=== PATIENT | female | born 1995 | race Caucasian/White ===

== ENCOUNTER → 2017-07-03 | Outpatient (CLI) | payer BC | END | disposition home or self-care (01) | LOC: RADECHMAIN 12:33 | PROVIDERS: ATTEND Internal Medicine | DX: R00.2 Palpitations (principal) | CPT/HCPCS: 93225; 93226 ==

== ENCOUNTER 2022-03-14 09:55 | Outpatient (CLI) | payer BC ==
[2022-03-14] MEDS ORDERED: ACETAMINOPHEN IV (For NPO) 1,000 MG in EMPTY BAG 1 BAG IVPB STA (10:38)
[2022-03-14] MEDS ORDERED: ONDANSETRON 4 MG/2 ML VIAL IVP STA (10:38)
[2022-03-14 10:40] LABS: Basophils % (A) 0 %; Eosinophils # (A) 0.1 k/uL (0-0.7); Eosinophils % (A) 1 %; HGB 13.7 gm/dL (11.4-16.0); Lymphocytes # (A) 1.1 k/uL (1.0-4.8); Lymphocytes % (A) 10 %; MCH 33.1 pg (25.0-35.0); MCHC 34.1 g/dL (31.0-37.0); MCV 97.1 fL (80.0-100.0); Mean Platelet Volume 8.9; Monocytes # (A) 0.5 k/uL (0-1.0); Monocytes % (A) 4 %; Neutrophils # (A) 9.7 k/uL (1.3-7.7); Neutrophils % (A) 84 %; Platelet Count 162 k/uL (150-450); RBC 4.12 m/uL (3.80-5.40); RDW 13.3 % (11.5-15.5); WBC 11.6 k/uL (3.8-10.6)
[2022-03-14] MEDS: LACTATED RINGERS 1,000 ML IV SCH ×3 (10:47→14:38)
[2022-03-14 10:53] LABS: Uric Acid 3.9 mg/dL (3.7-7.4)
[2022-03-14 11:24] LABS: Appearance,Urine Clear (Clear); Bacteria,Urine Occasional /hpf; Bilirubin,Urine Negative (Negative); Blood,Urine Moderate (Negative); Color,Urine Yellow; Glucose,Urine (UA) Negative (Negative); Ketones,Urine Negative (Negative); Leukocyte Esterase,Urine Moderate (Negative); Mucus,Urine Occasional /hpf; Nitrite,Urine Negative (Negative); Protein,Urine Negative (Negative); RBC,Urine 94 /hpf (0-5); Specific Gravity,Urine 1.011 (1.001-1.035); Squamous Epithelial Cell,Urine 1 /hpf (0-4); Urobilinogen,Urine <2.0 mg/dL (<2.0); WBC,Urine 3 /hpf (0-5)
--- NOTE | 2022-03-14 12:38 | US ---
EXAMINATION TYPE: US kidneys/renal and bladder DATE OF EXAM: 03/14/2022 COMPARISON: None CLINICAL HISTORY: 26-year-old female rule out kidney stones. Rule out stones. Hx kidney stones and li thotripsy. Patient is 34 weeks . TECHNIQUE: Multiple sonographic images of the kidneys and bladder are obtained. FINDINGS: EXAM MEASUREMENTS: Right Kidney: 10.7 x 6.6 x 5.1 cm Left Kidney: 10.7 x 5.7 x 6.3 cm Right Kidney: There is mild hydronephrosis. 8 mm echogenic focus at the upper pole and 7 mm at the lo wer pole. Left Kidney: There is mild hydronephrosis. There is a 5 mm upper pole echogenic focus. Bladder: Distended with some internal echoes. Bilateral Jets seen: Yes IMPRESSION: 1. Mild bilateral hydronephrosis. 2. Bilateral renal calculi measuring up to 8 mm. 3. Floating echoes within the distended gallbladder. Correlate with urinalysis to exclude hematuria o r infected urine.
[2022-03-14 14:50] VITALS: BP 139/84; PULSE 100; RESP 16; TEMP 98.8
== END 2022-03-14 13:00 | disposition home or self-care (01) ==
LOC: FBPOP 09:55
PROVIDERS: ATTEND Obstetrics & Gynecology
DX: O13.9 Gestational [pregnancy-induced] hypertension without significant proteinuria, unspecified trimester (principal)
CPT/HCPCS: 59025; 96361; 96365; 96367; 96375; 36415; 83615; 84450; 84460; 84550; 85025; 81001; 87086; 76770; J0690; J2405; J0131

== ENCOUNTER 2022-04-17 05:59 | Inpatient (IN) | payer BC ==
[2022-04-17] MEDS ORDERED: TERBUTALINE 1 MG/ML VIAL SQ PRN (06:19)
[2022-04-17] MEDS ORDERED: OXYTOCIN 10 UNIT/ML 1 ML VIAL IM PRN (06:19)
[2022-04-17] MEDS ORDERED: CARBOPROST TROMETHAMINE 250 MCG/ML 1 ML AMP IM PRN (06:19)
[2022-04-17] MEDS ORDERED: LIDOCAINE 0.5% (PF) 5 MG/ML (50 ML SDV) SQ PRN (06:19)
[2022-04-17] MEDS ORDERED: METHYLERGONOVINE 0.2 MG/ML 1 ML AMP IM PRN (06:19)
[2022-04-17] MEDS ORDERED: OXYTOCIN 30 UNITS/500 ML NS 30 UNIT in SALINE 1 500ML.BAG IV SCH (06:30)
[2022-04-17] MEDS: LACTATED RINGERS 1,000 ML IV SCH ×3 (06:54→14:28)
[2022-04-17 07:09] LABS: Basophils # (A) 0.1 k/uL (0-0.2); Basophils % (A) 1 %; Eosinophils # (A) 0.1 k/uL (0-0.7); Eosinophils % (A) 2 %; HCT 42.1 % (34.0-46.0); HGB 14.3 gm/dL (11.4-16.0); Lymphocytes # (A) 1.6 k/uL (1.0-4.8); Lymphocytes % (A) 18 %; MCH 32.9 pg (25.0-35.0); MCV 96.7 fL (80.0-100.0); Mean Platelet Volume 8.8; Monocytes # (A) 0.5 k/uL (0-1.0); Monocytes % (A) 5 %; Neutrophils # (A) 6.5 k/uL (1.3-7.7); Neutrophils % (A) 73 %; Platelet Count 169 k/uL (150-450); RBC 4.36 m/uL (3.80-5.40); RDW 12.9 % (11.5-15.5); WBC 8.9 k/uL (3.8-10.6)
--- NOTE | 2022-04-17 07:35 | P.HPOB ---
History of Present Illness H&P Date: 04/17/22 Chief Complaint: Here for induction of labor for gestational hypertension This is a 26-year-old female 1 para 0 EDC 04/24/2022 at 39 weeks gestation who presents this morning for induction with gestational hypertension. Blood pressure was actually very good this morning on admission, 131/86. She denies headache, visual changes, right upper quadrant pain. She is having mild irregular spontaneous contractions but denies fluid leakage or vaginal bleeding. Past medical history is significant for headaches, absence seizures in childhood, kidney stones. Past surgical history significant for lithotripsy, wisdom teeth extracted, adenoidectomy, tonsillectomy. Current medications vitamins daily, baby aspirin daily. ALLERGIES penicillin to which reports a rash. Family history significant for pancreatic cancer, lung cancer, esophageal cancer. Social history patient is , she works at [employer], she denies alcohol tobacco or drug use. history is significant for blood type O+, rubella status immune. VDRL testing, urine culture, gonorrhea and chlamydia cultures, Pap smear, HIV testing, hepatitis B surface antigen, rupee strep cultures negative. One-hour Glucola 132. On exam patient is 5 foot 1 inch, 175 pounds, blood pressure 130/86. Vital signs are stable and she is afebrile. General physical exam is within normal limits. Cervix is 3 cm dilated, soft, 60% effaced, vertex. Artificial amniorrhexis reveals clear fluid. heart rate is consistent with reactive NST. Impression: 39 week intrauterine , gestational hypertension, here for induction of labor. All signs reassuring. Plan: I have discussed with her analgesic options. Oxytocin per hospital protocol. We will check PIH labs this morning. Close maternal and surveillance. Anticipate normal spontaneous vaginal delivery. Review of Systems Constitutional: Reports as per HPI Past Medical History Past Medical History: Renal Disease (History of kidney stones in the past requiring surgical intervention by urology) Additional Past Medical History / Comment(s): epilepsy, kidney stones, MRSA History of Any Multi-Drug Resistant Organisms: MRSA Date of last positivie culture/infection: 01/16/2015 MDRO Source:: legs Past Surgical History: Tonsillectomy Additional Past Surgical History / Comment(s): lithotripsy/uretal stent Past Anesthesia/Blood Transfusion Reactions: No Reported Reaction Past Psychological History: No Psychological Hx Reported Smoking Status: Never smoker Past Alcohol Use History: Occasional Past Drug Use History: None Reported - Past Family History Mother Family Medical History: Hypertension Medications and Allergies Home Medications Medication Instructions Recorded Confirmed Type Aspirin 81 mg PO DAILY 04/17/22 04/17/22 History Vit No.179/Iron/Folic 1 each PO DAILY 04/17/22 04/17/22 History [ Tablet] Allergies Allergy/AdvReac Type Severity Reaction Status Date / Time Penicillins Allergy Rash/Hives Verified 04/17/22 06:17 Sulfa (Sulfonamide Allergy Rash/Hives Verified 04/17/22 06:17 Antibiotics) Exam Vital Signs Temp Pulse Resp BP Pulse Ox 04/17/22 06:23 98.1 F 103 H 18 131/86 97 Intake and Output 04/16/22 04/17/22 04/17/22 22:59 06:59 14:59 Other: Weight 79.379 kg See dictation under HPI please Results Result Diagrams: 04/17/22 06:40 Assessment and Plan Assessment: 39 week intrauterine , gestational hypertension, here for elective induction of labor. All signs reassuring. Plan: Oxytocin per hospital protocol. Analgesic options reviewed. Close maternal and surveillance. We will check PIH labs this morning. Anticipate normal spontaneous vaginal delivery. Time with Patient: Less than 30
[2022-04-17 07:54] LABS: ALT 11 U/L (4-34); AST 25 U/L (14-36); African American GFR (CKD) >90 (>60 ml/min/1.73 sqM); Blood Urea Nitrogen 8 mg/dL (7-17); LDH 591 U/L (313-618); Non-African American GFR(CKD) >90 (>60 ml/min/1.73 sqM)
[2022-04-17 07:55] LABS: INR 0.8 (<1.2); Partial Thromboplastin Time 24.3 sec (22.0-30.0); Prothrombin Time 9.5 sec (9.0-12.0)
[2022-04-17] MEDS ORDERED: BUPIVACAINE (PF) 0.25% 30 ML VIAL ONE (11:25)
[2022-04-17] MEDS ORDERED: fentaNYL (PF) 50 MCG/ML 5 ML AMP ONE (11:25)
[2022-04-17] MEDS ORDERED: SODIUM CHLORIDE 0.9% 100 ML BAG ONE (11:25)
[2022-04-17] MEDS ORDERED: LANOLIN CREAM 5 GM TUBE TOPICAL PRN (18:13)
[2022-04-17] MEDS ORDERED: diphenhydrAMINE 25 MG CAP PO PRN (18:13)
[2022-04-17] MEDS ORDERED: ZOLPIDEM 5 MG TAB PO PRN (18:13)
[2022-04-17] MEDS ORDERED: BENZOCAINE/MENTHOL SPRAY 1 GM/SPRAY AEROSOL TOPICAL PRN (18:13)
[2022-04-17] MEDS ORDERED: HYDROCORTISONE 2.5% RECTAL CREAM 30 GM TUBE RECTAL PRN (18:13)
[2022-04-17] MEDS ORDERED: diphenhydrAMINE 50 MG/ML 1 ML VIAL IVP PRN ×2 (18:13)
[2022-04-17] MEDS ORDERED: diphenhydrAMINE 50 MG CAP PO PRN (18:13)
[2022-04-17] MEDS ORDERED: SIMETHICONE 80 MG CHEWABLE PO PRN (18:13)
--- NOTE | 2022-04-17 18:13 | P.PROBDLV ---
Vaginal Delivery Note - . Vaginal Delivery Note: This is a 26-year-old female 1 para 0 EDC 04/24/2022 at 39 weeks gestation. Patient presented for induction with gestational hypertension, blood pressure on admission 131/86. Blood type O positive, rubella status immune, group B strep cultures negative. Please see my dictated history and physical for details. Artificial amniorrhexis revealed clear fluid. Oxytocin was started and titrated per hospital protocol. Epidural was placed per her request. Patient progressed through the first stage of labor and became completely dilated. Perineal body was prepped and draped in usual sterile fashion. With excellent maternal expulsive efforts tampons head delivered occiput anterior and she restituted accordingly. There was no nuchal cord noted. The right or anterior shoulder was delivered easily from underneath the pubic symphysis at which time the oropharynx, nasopharynx, and external nares were bulb suctioned. Patient was officially delivered of a liveborn female at 1742 hrs. Umbilical cord was doubly clamped and ligated, she was handed to waiting nurses for evaluation where scores of 8 and 9 at one and 5 minutes respectively were given. The placenta delivered spontaneously, it was inspected and noted to be intact with trivascular cord at 1745 hrs. Careful inspection now of the cervix, vagina, perineum, periurethral, and perirectal areas revealed a small first-degree midline laceration easily repaired with a single [id number] of 3-0 Rapide. Uterus is firm and in the midline, symmetric and 18 week size upon completion of delivery. Total estimated blood loss 250 mL's. Patient and her family are allowed to begin the bonding experience in the LDR. Blood pressure immediately after delivery 138/83.
[2022-04-17] MEDS ORDERED: ACETAMINOPHEN TAB 325 MG TAB PO PRN (20:02)
[2022-04-17] MEDS: SENNOSIDES-DOCUSATE SODIUM 1 EACH TAB PO SCH (23:20)
[2022-04-17] MEDS: IBUPROFEN 600 MG TAB PO SCH (23:21)
[2022-04-18] MEDS: IBUPROFEN 600 MG TAB PO SCH ×5 (01:26→21:53)
[2022-04-18 03:31] LABS: Basophils % (A) 0 %; Eosinophils % (A) 0 %; HCT 39.4 % (34.0-46.0); HGB 13.3 gm/dL (11.4-16.0); Lymphocytes # (A) 1.6 k/uL (1.0-4.8); Lymphocytes % (A) 10 %; MCH 33.1 pg (25.0-35.0); MCHC 33.9 g/dL (31.0-37.0); MCV 97.6 fL (80.0-100.0); Mean Platelet Volume 9.7; Monocytes # (A) 0.8 k/uL (0-1.0); Monocytes % (A) 5 %; Neutrophils # (A) 13.9 k/uL (1.3-7.7); Neutrophils % (A) 84 %; Platelet Count 195 k/uL (150-450); RBC 4.04 m/uL (3.80-5.40); RDW 13.2 % (11.5-15.5); WBC 16.6 k/uL (3.8-10.6)
[2022-04-18] MEDS: SENNOSIDES-DOCUSATE SODIUM 1 EACH TAB PO SCH ×2 (07:50→20:17)
--- NOTE | 2022-04-18 08:40 | P.DS ---
Providers Date of admission: 04/17/22 05:59 Expected date of discharge: 04/18/22 Attending physician: Muriel Andrew Primary care physician: Stated None Hospital Course: This is a 26-year-old white female 1 para 0 EDC 04/24/2022 at 39 weeks gestation who presented for induction with gestational hypertension. Blood pressure 131/86 on admission. Please see dictated history and physical for details. Artificial amniorrhexis revealed clear fluid. Oxytocin was started and titrated. Epidural was placed per her request. She went on to deliver vaginally a liveborn female with scores of 8 and 9 at one and 5 minutes respectively. weighed 7 lbs. 12 oz. or 3-40 g. A small first- degree laceration was noted and repaired easily. Estimated blood loss 250 mL's. Please see dictated delivery note for details. This 20 the patient is doing well. She is voiding, and bleeding, passing flatus without difficulty. Vital signs are stable, blood pressure 120s over 70s. Fundus is firm and in the midline, symmetric and 18 week size. Extremities are negative for edema. [place] infant is doing well. Patient is judged to be in very good condition for discharge home. She'll follow-up with me in the office in 6 weeks. I have reminded her no intercourse, tampons or douching. She will use [id number] Advil or Aleve, or Motrin as needed for pain. She will call with any fevers shakes or chills, foul smelling or copious lochia, with the passage of large blood clots, with any pain not alleviated by [id number] products, or indeed with any concerns. infant will follow-up with music theory teacher as per recommendations. Assessment: Doing well first day Patient Condition at Discharge: Good Plan - Discharge Summary Discharge Rx Participant: No New Discharge Prescriptions: No Action Vit No.179/Iron/Folic [ Tablet] 1 each PO DAILY Aspirin 81 mg PO DAILY Discharge Medication List Aspirin 81 mg PO DAILY 04/17/22 [History] Vit No.179/Iron/Folic [ Tablet] 1 each PO DAILY 04/17/22 [History] Follow up Appointment(s)/Referral(s): Muriel Andrew MD [STAFF PHYSICIAN] - 6 Weeks Discharge Disposition: HOME SELF-CARE
[2022-04-18] MEDS: LACTATED RINGERS 1,000 ML IV SCH (09:11)
[2022-04-19 07:44] VITALS: BP 128/86; PULSE 76; RESP 18; TEMP 98.7
[2022-04-19] MEDS: SENNOSIDES-DOCUSATE SODIUM 1 EACH TAB PO SCH (07:44)
[2022-04-19] MEDS: IBUPROFEN 600 MG TAB PO SCH ×2 (10:37→15:36)
== END 2022-04-19 15:41 | disposition home or self-care (01) | DRG 807 ==
LOC: 4FBP 05:59
PROVIDERS: ADMIT Obstetrics & Gynecology; ATTEND Obstetrics & Gynecology
PROC: 0HQ9XZZ Repair Perineum Skin, External Approach (ICD-10-PCS; principal; 2022-04-17)
PROC: 10E0XZZ Delivery of Products of Conception, External Approach (ICD-10-PCS; principal; 2022-04-17)
PROC: 10907ZC Drainage of Amniotic Fluid, Therapeutic from Products of Conception, Via Natural or Artificial Opening (ICD-10-PCS; 2022-04-17)
PROC: 3E033VJ Introduction of Other Hormone into Peripheral Vein, Percutaneous Approach (ICD-10-PCS; 2022-04-17)
DX: O13.4 Gestational [pregnancy-induced] hypertension without significant proteinuria, complicating childbirth (principal); Z37.0 Single live birth; O70.0 First degree perineal laceration during delivery; Z28.310 Unvaccinated for COVID-19; Z79.82 Long term (current) use of aspirin; Z79.899 Other long term (current) drug therapy; Z3A.39 39 weeks gestation of pregnancy; Z86.69 Personal history of other diseases of the nervous system and sense organs; Z88.0 Allergy status to penicillin; Z82.49 Family history of ischemic heart disease and other diseases of the circulatory system
CPT/HCPCS: 82565; 83615; 84450; 84460; 84520; 84550; 85025; 85384; 85610; 85730; 86850; 86900; 86901; 88307

== ENCOUNTER → 2022-06-07 | Outpatient (CLI) | payer BC ==
--- NOTE | 2022-06-07 09:20 | XR ---
EXAMINATION TYPE: XR KUB DATE OF EXAM: 06/07/2022 Comparison: None Clinical History: 26-year-old female N20.0 CALCULUS OF KIDNEY Findings: Scattered mild to moderate stool. Possible faint right-sided renal calculi measuring up to 4 mm. Limi gerri due to overlying bowel content. No dilated small bowel. Visualized lung bases are clear. Impression: A couple possible faint right renal calculi measuring up to 4 mm. Limited by overlying bowel content.
== END | disposition home or self-care (01) ==
LOC: RADXRMAIN 09:00
PROVIDERS: ATTEND Urology
DX: N20.0 Calculus of kidney (principal)
CPT/HCPCS: 74018

== ENCOUNTER → 2022-06-07 | Outpatient (CLI) | payer BC ==
--- NOTE | 2022-06-07 09:03 | USB ---
Reason for Exam: Clinical finding. Patient History: Currently . Technique: Method: Whole Breast Handheld. Findings: The whole breast of the left breast, the axilla of the left breast and the retroareolar of the left breast were scanned. Ultrasound imaging of the left whole breast, axillary tail and retroareolar region as well as the area of palpable abnormality was performed.Ultrasound imaging of the left whole breast, axillary tail and retroareolar region as well as the area of palpable abnormality was performed. No evidence of organizing fluid collection or mass. Overall Assessment: Negative, BI-RAD 1 Management: Screening Mammogram of both breasts in 1 year. A clinical breast exam by your physician is recommended on an annual basis and results should be correlated with mammographic findings. This exam should not preclude additional follow-up of suspicious palpable abnormalities. ??Results were given to the patient verbally at the time of exam. Electronically signed and approved by: Edson Mitchell,
== END | disposition home or self-care (01) ==
LOC: RADUSWWP 08:12
PROVIDERS: ATTEND Obstetrics & Gynecology
DX: N63.0 Unspecified lump in unspecified breast (principal)

== ENCOUNTER → 2023-02-19 | Outpatient (CLI) | payer BC ==
--- NOTE | 2023-02-19 18:01 | XR ---
EXAMINATION TYPE: XR abdomen 1V DATE OF EXAM: 02/19/2023 5:50 PM INDICATION: Patient age:Female; 27 years old; Reason for study: N20.0; COMPARISON: None. TECHNIQUE: One radiographic view of the abdomen was obtained. FINDINGS: The bowel gas pattern is nonspecific without dilated loops of small or large bowel. There i s no evidence for organomegaly or pneumoperitoneum. The osseous structures are intact. No abnormal calcifications are present. Fecal material and gas are demonstrated throughout the colon and rectum. IMPRESSION: Nonspecific bowel gas pattern without radiographic evidence for acute process.
== END | disposition home or self-care (01) ==
LOC: RADXRMAIN 17:38
PROVIDERS: ATTEND Urology
DX: N20.0 Calculus of kidney (principal)
CPT/HCPCS: 74018

== ENCOUNTER 2023-11-03 16:36 | Emergency (ER) | payer BC ==
[2023-11-03 17:21] LABS: Basophils % (A) 0 %; Eosinophils # (A) 0.2 k/uL (0-0.7); Eosinophils % (A) 2 %; HCT 40.3 % (34.0-46.0); HGB 14.1 gm/dL (11.4-16.0); Lymphocytes # (A) 1.5 k/uL (1.0-4.8); Lymphocytes % (A) 14 %; MCH 33.2 pg (25.0-35.0); MCHC 35.1 g/dL (31.0-37.0); MCV 94.8 fL (80.0-100.0); Mean Platelet Volume 8.6; Monocytes # (A) 0.3 k/uL (0-1.0); Monocytes % (A) 3 %; Neutrophils # (A) 8.3 k/uL (1.3-7.7); Neutrophils % (A) 80 %; Platelet Count 173 k/uL (150-450); RBC 4.25 m/uL (3.80-5.40); RDW 12.7 % (11.5-15.5); WBC 10.5 k/uL (3.8-10.6)
[2023-11-03 17:23] VITALS: TEMP 98.5
[2023-11-03 17:31] LABS: ALT 13 U/L (4-34); AST 23 U/L (14-36); African American GFR (CKD) >90 (>60 ml/min/1.73 sqM); Albumin 3.8 g/dL (3.5-5.0); Alkaline Phosphatase 125 U/L (38-126); Anion Gap 9 mmol/L; Blood Urea Nitrogen 12 mg/dL (7-17); Carbon Dioxide 18 mmol/L (22-30); Chloride 110 mmol/L (98-107); Glucose 121 mg/dL (74-99); Lipase 185 U/L (23-300); Magnesium 1.4 mg/dL (1.6-2.3); Non-African American GFR(CKD) >90 (>60 ml/min/1.73 sqM); Potassium 3.5 mmol/L (3.5-5.1); Sodium 137 mmol/L (137-145); Total Bilirubin 0.4 mg/dL (0.2-1.3); Total Protein 6.4 g/dL (6.3-8.2)
[2023-11-03 17:41] LABS: INR 0.8 (<1.2); Partial Thromboplastin Time 23.2 sec (22.0-30.0); Prothrombin Time 9.5 sec (10.0-12.5)
[2023-11-03 18:46] LABS: Appearance,Urine Cloudy (Clear); Bacteria,Urine Few /hpf; Bilirubin,Urine Negative (Negative); Blood,Urine Negative (Negative); Color,Urine Colorless; Glucose,Urine (UA) Negative (Negative); Ketones,Urine Negative (Negative); Leukocyte Esterase,Urine Large (Negative); Mucus,Urine Rare /hpf; Nitrite,Urine Negative (Negative); PH, Urine 6.5 (5.0-8.0); Protein,Urine Trace (Negative); RBC,Urine 8 /hpf (0-5); Specific Gravity,Urine 1.015 (1.001-1.035); Squamous Epithelial Cell,Urine 18 /hpf (0-4); Urobilinogen,Urine <2.0 mg/dL (<2.0); WBC,Urine 28 /hpf (0-5)
--- NOTE | 2023-11-03 18:52 | ED ---
Chest Pain HPI - General Chief Complaint: Chest Pain Stated Complaint: Chest Pains/33wks preg Time Seen by Provider: 11/03/23 16:52 Source: patient Mode of arrival: ambulatory Limitations: no limitations - History of Present Illness Initial Comments: 28-year-old female presents emergency department reporting chest pain. States that she has had chest pain over the course of the past week. The last she had it was yesterday. She denies having any pain today. No history of cardiac disease. Denies that she feels associated shortness of breath. Denies history of DVT or PE. No calf pain or swelling. She does admit to having palpitations which she feels is no worse than what should be expected at 33 weeks . She is G2, P1. Follows with Dr. Vargas. She denies any issues with hypertension or hyperglycemia in this . Does admit to some hypertension with her first . She called the office today in regards to her symptoms and was told to go to the emergency department. She denies fevers, chills or cough. No abdominal pain. Denies any vaginal bleeding or discharge. Does admit to movement. No headaches or visual changes. No other alleviating, precipitating or modifying factors - Related Data Home Medications Medication Instructions Recorded Confirmed Aspirin 81 mg PO DAILY 04/17/22 04/17/22 Vit No.179/Iron/Folic 1 each PO DAILY 04/17/22 04/17/22 [ Tablet] Allergies Allergy/AdvReac Type Severity Reaction Status Date / Time Penicillins Allergy Rash/Hives Verified 11/03/23 16:48 Sulfa (Sulfonamide Allergy Rash/Hives Verified 11/03/23 16:48 Antibiotics) Review of Systems ROS Statement: Those systems with pertinent positive or pertinent negative responses have been documented in the HPI. ROS Other: All systems not noted in ROS Statement are negative. Past Medical History Past Medical History: Renal Disease Additional Past Medical History / Comment(s): epilepsy, kidney stones, MRSA History of Any Multi-Drug Resistant Organisms: MRSA Date of last positivie culture/infection: 01/16/2015 MDRO Source:: legs Past Surgical History: Tonsillectomy Additional Past Surgical History / Comment(s): lithotripsy/uretal stent Past Anesthesia/Blood Transfusion Reactions: No Reported Reaction Past Psychological History: No Psychological Hx Reported Smoking Status: Never smoker Past Alcohol Use History: Occasional Past Drug Use History: None Reported - Past Family History Mother Family Medical History: Hypertension General Exam Limitations: no limitations General appearance: alert, in no apparent distress Head exam: Present: atraumatic, normocephalic, normal inspection Eye exam: Present: normal appearance, PERRL, EOMI. Absent: scleral icterus, conjunctival injection, periorbital swelling ENT exam: Present: normal exam, mucous membranes moist Neck exam: Present: normal inspection. Absent: tenderness, meningismus, lymphadenopathy Respiratory exam: Present: normal lung sounds bilaterally. Absent: respiratory distress, wheezes, rales, rhonchi, stridor Cardiovascular Exam: Present: normal rhythm, tachycardia, normal heart sounds. Absent: systolic murmur, diastolic murmur, rubs, gallop, clicks GI/Abdominal exam: Present: soft, normal bowel sounds, other (gravid). Absent: distended, tenderness, guarding, rebound, rigid Extremities exam: Present: normal inspection, full ROM, normal capillary refill. Absent: tenderness, pedal edema, joint swelling, calf tenderness Back exam: Present: normal inspection Neurological exam: Present: alert, oriented X3, CN II-XII intact Psychiatric exam: Present: normal affect, normal mood Skin exam: Present: warm, dry, intact, normal color. Absent: rash Course Vital Signs 11/03/23 11/03/23 11/03/23 16:42 17:58 18:54 Temperature 98.5 F Pulse Rate 124 H 114 H 102 H Respiratory 20 18 18 Rate Blood Pressure 146/92 147/91 127/87 O2 Sat by Pulse 98 97 97 Oximetry 11/03/23 19:50 Temperature Pulse Rate Respiratory 16 Rate Blood Pressure O2 Sat by Pulse Oximetry Chest Pain MDM - MDM Was pt. sent in by a medical professional or institution (, PA, RADIOLOGY TRANSCRIPTIONIST, urgent care, hospital, or residential...) When possible be specific @ -No Did you speak to anyone other than the patient for history (EMS, parent, family, police, friend...)? What history was obtained from this source @ -No Did you review nursing and triage notes (agree or disagree)? Why? @ -I reviewed and agree with nursing and triage notes Were old charts reviewed (outside hosp., previous admission, EMS record, old EKG, old radiological studies, urgent care reports/EKG's, residential records)? Report findings @ -No old charts were reviewed Differential Diagnosis (chest pain, altered mental status, abdominal pain women, abdominal pain men, vaginal bleeding, weakness, fever, dyspnea, syncope, headache, dizziness, GI bleed, back pain, seizure, CVA, palpatations, mental health, musculoskeletal)? @ -Differential Palpitations Ventricular arrhythmias, atrial arrhythmias, myocardial infarction, anemia, thyrotoxicosis, electrolyte imbalance, hypokalemia, pulmonary embolism, pulmonary disease, drugs, alcohol, anxiety, stress.... This is not meant to be an all-inclusive list. EKG interpreted by me (3pts min.). @ -Yes and demonstrates sinus tachycardia with a rate of 105. DC interval 127. QRS 86. QTc of 369. No acute ST segment elevations or depressions X-rays interpreted by me (1pt min.). @ -None done CT interpreted by me (1pt min.). @ -None done U/S interpreted by me (1pt. min.). @ -Bedside ultrasound performed which demonstrates positive movement and heart tones What testing was considered but not performed or refused? (CT, X-rays, U/S, labs)? Why? @ -None What meds were considered but not given or refused? Why? @ -Blood pressure medications are considered however patient does not elevate higher than acceptable range Did you discuss the management of the patient with other professionals (p richmondfessionalmattie i.e. , PA, RADIOLOGY TRANSCRIPTIONIST, lab, RT, psych nurse, social sciences department chair, trial lawyer, teacher, radiation safety officer, rn case management)? Give summary @ -Spoke with Dr. Patel who would like the patient transferred upstairs to OB Was smoking cessation discussed for >3mins.? @ -No Was critical care preformed (if so, how long)? @ -No Were there social determinants of health that impacted care today? How? (Homelessness, low income, unemployed, alcoholism, drug addiction, transportation, low edu. Level, literacy, decrease access to med. care, alf, rehab)? @ -No Was there de-escalation of care discussed even if they declined (Discuss DNR or withdrawal of care, Hospice)? DNR status @ -No What co-morbidities impacted this encounter? (DM, HTN, Smoking, COPD, CAD, Cancer, CVA, ARF, Chemo, Hep., AIDS, mental health diagnosis, sleep apnea, morbid obesity)? @ -None Was patient admitted / discharged? Hospital course, mention meds given and route, prescriptions, significant lab abnormalities, going to OR and other pertinent info. @ -Upon arrival patient was placed into room 19. Thorough history and physical exam was performed. IV was established. Laboratory studies are conducted. Bedside ultrasound was performed which demonstrates positive heart tones and movement. Results of laboratory studies are discussed with the patient and Dr. Patel. I am concerned about the patient's elevated blood pressure. Spoke with Dr. Patel who would like the patient sent upstairs for further evaluation. Patient was agreeable to this plan and was discharged from the ER and taken to labor and delivery Undiagnosed new problem with uncertain prognosis? @ -Yes Drug Therapy requiring intensive monitoring for toxicity (Heparin, Nitro, Insulin, Cardizem)? @ -No Were any procedures done? @ -No Diagnosis/symptom? @ -Acute palpitations, acute tachycardia, evaluation for preeclampsia Acute, or Chronic, or Acute on Chronic? @ -Acute Uncomplicated (without systemic symptoms) or Complicated (systemic symptoms)? @ -Complicated Side effects of treatment? @ -No Exacerbation, Progression, or Severe Exacerbation? @ -No Poses a threat to life or bodily function? How? (Chest pain, [place], [place], pneumonia, PE, COPD, DKA, ARF, appy, cholecystitis, CVA, Diverticulitis, Homicidal, Suicidal, threat to staff... and all critical care pts) @ -No Disposition Clinical Impression: Hypertension, Chest pain, Tachycardia Disposition: HOME SELF-CARE Condition: Stable Instructions (If sedation given, give patient instructions): Chest Pain (ED) Additional Instructions: Dr. Patel would like you to go upstairs for the remainder of your evaluation Is patient prescribed a controlled substance at d/c from ED?: No Referrals: None,Stated [Primary Care Provider] - 1-2 days Time of Disposition: 19:46
[2023-11-03 18:58] VITALS: BP 127/87; PULSE 102
[2023-11-03 20:00] VITALS: RESP 16
== END 2023-11-03 19:51 | disposition home or self-care (01) ==
LOC: EC 16:36
DX: O16.3 Unspecified maternal hypertension, third trimester (principal); O99.413 Diseases of the circulatory system complicating pregnancy, third trimester; R07.89 Other chest pain; R00.0 Tachycardia, unspecified; Z88.2 Allergy status to sulfonamides; Z88.0 Allergy status to penicillin; Z3A.33 33 weeks gestation of pregnancy
CPT/HCPCS: 36415; 80053; 81001; 83690; 83735; 84484; 84550; 85025; 85379; 85610; 85730; 93005; 99285

== ENCOUNTER → 2023-11-03 | Outpatient (CLI) | payer BC ==
[2023-11-03 21:20] LABS: Creatinine,Urine Random 69.9 mg/dL; Protein/Creatinine Ratio,Urine 0.458
[2023-11-03 22:44] VITALS: BP 130/79; PULSE 95; RESP 16; TEMP 98.2
--- NOTE | 2023-11-05 07:06 | P.MSEPDOC ---
Presenting Problems - Arrival Data Date of Arrival on Unit: 11/03/23 Time of Arrival on Unit: 20:20 Mode of Transport: Ambulatory - Complaint OB-Reason for Admission/Chief Complaint: NST, Other Medical History - Information : 2 Para: 1 Term: 1 : 0 Abortions: Spontaneous or Elective: 0 Number of Living Children: 1 - Gestational Age Gestational Age by CARLOS (wks/days): 33 Weeks and 2 Days Review of Systems - Review of Systems Constitutional: No problems, Recent weight loss Breast: No problems ENT: No problems Cardiovascular: No problems Respiratory: No problems Gastrointestinal: No problems Genitourinary: No problems Musculoskeletal: No problems Neurological: No problems Skin: No problems Vital Signs - Temperature Temperature: 98.2 F Temperature Source: Oral - Pulse Supine Pulse Rate: 95 Pulse Assessment Method: Automatic Cuff - Respirations Respiratory Rate: 16 Oxygen Delivery Method: Room Air - Blood Pressure Right Arm Blood Pressure: 130/79 Blood Pressure Mean: 96 Blood Pressure Source: Automatic Cuff Medical Screen Scoring - Assessment - Baby A Baseline FHR: 125 Heart Rate - NICHD Category: Category I (Normal) NST: Reactive Physician Notification - Physician Notified Physician Notified Date: 11/03/23 Physician Notified Time: 20:50 Physician: DR MENDENHALL New Order Received: Yes - Notification Comment Comment: PT TO DISCHARGE HOME Maternal Triage Index - Non-Urgent/Priority 4 Non-Urgent Priority 4: Yes Criteria Met for Priority 4: PT STABLE COMING FROM ER FOR NST Disposition - Disposition OB Disposition: Discharge to home, Written follow up instructions reviewed Discharge Date: 11/03/23 Discharge Time: 21:15 I agree with the RN Medical Screening Exam: Yes Case reviewed; plan agreed upon as documented in EMR&OBIX.: Yes Diagnosis: RELATED CONDITIONS, UNSPECIFIED, THIRD TRIMESTER
== END | disposition home or self-care (01) ==
LOC: FBPOP 19:59
PROVIDERS: ATTEND Obstetrics & Gynecology
DX: O26.893 Other specified pregnancy related conditions, third trimester (principal); Z3A.33 33 weeks gestation of pregnancy; Z88.0 Allergy status to penicillin; Z88.2 Allergy status to sulfonamides
CPT/HCPCS: 59025; 82570; 84156; 99215

== ENCOUNTER → 2023-11-13 | Outpatient (CLI) | payer BC ==
--- NOTE | 2023-11-13 21:06 | US ---
EXAMINATION TYPE: US OB >= 14 wk fetus DATE OF EXAM: 11/13/2023 COMPARISON: None CLINICAL INDICATION: Female, 28 years old with history of O36.63X0 MATERNAL CARE FOR EXCESS JESUS MANUEL WTH, TH; Growth TECHNIQUE: Transabdominal (TA) GESTATIONAL AGE / DATING Physician Established: (35 weeks/0 days) EDC: 12/18/2023 Dates by LMP: (35 weeks/0 days) EDC: 12/18/2023 Dates by First Scan: No previous this is first scan at this facility Dates by Current Scan: (34 weeks/4 days) EDC: 12/21/2023 Beta HCG (if available): Not available at this time SURVEY IUP: Single PLACENTA: Anterior/ Fundal PREVIA: No Previa MAGALI: 13.4 cm Normal CERVICAL LENGTH (transabdominal: norm > 3.0cm): 4.2 cm BIOMETRY PRESENTATION: Vertex LIE: Longitudinal BPD: 8.7 cm 35 weeks / 3 days HC: 31.35 cm 35 weeks / 1 days AC: 31.14 cm 35 weeks / 1 days FL: 6.26 cm 32 weeks / 3 days ESTIMATED WEIGHT IN GRAMS: 2418 grams ESTIMATED WEIGHT IN LBS/OZ: 5 lbs. 5 oz. WEIGHT PERCENTAGE BASED ON ESTABLISHED DATES: 30% HC/AC: 1.01 Normal FL/AC: 20% Normal HEART RATE: 140 bpm RHYTHM: Normal IMPRESSION: 1. Single intrauterine gestation estimated at 34 weeks 4 days gestation based on current ultrasound m easurements. Cardiac activity measures 140 bpm.
== END | disposition home or self-care (01) ==
LOC: RADUSWWP 10:11
PROVIDERS: ATTEND Obstetrics & Gynecology
DX: O36.63X1 Maternal care for excessive fetal growth, third trimester, fetus 1 (principal); Z3A.35 35 weeks gestation of pregnancy
CPT/HCPCS: 76805

== ENCOUNTER 2023-12-08 14:36 | Inpatient (IN) | payer BC ==
[2023-12-08] MEDS ORDERED: TRANEXAMIC 1,000 MG/100ML-NACL 1,000 MG in EMPTY BAG 1 BAG IV PRN (14:43)
[2023-12-08] MEDS ORDERED: miSOPROStoL 200 MCG TAB PO PRN (14:43)
[2023-12-08] MEDS ORDERED: METHYLERGONOVINE 0.2 MG/ML 1 ML AMP IM PRN (14:43)
[2023-12-08] MEDS ORDERED: OXYTOCIN 10 UNIT/ML 1 ML VIAL IM PRN (14:43)
[2023-12-08] MEDS ORDERED: CARBOPROST TROMETHAMINE 250 MCG/ML 1 ML AMP IM PRN (14:43)
[2023-12-08] MEDS ORDERED: TERBUTALINE 1 MG/ML VIAL SQ PRN (14:43)
[2023-12-08 15:19] LABS: Basophils % (A) 0 %; Eosinophils # (A) 0.1 k/uL (0-0.7); Eosinophils % (A) 1 %; HCT 43.7 % (34.0-46.0); HGB 15.3 gm/dL (11.4-16.0); Lymphocytes # (A) 1.3 k/uL (1.0-4.8); Lymphocytes % (A) 11 %; MCH 33.4 pg (25.0-35.0); MCV 95.3 fL (80.0-100.0); Mean Platelet Volume 8.6; Monocytes # (A) 0.3 k/uL (0-1.0); Monocytes % (A) 3 %; Neutrophils # (A) 10.4 k/uL (1.3-7.7); Neutrophils % (A) 85 %; Platelet Count 212 k/uL (150-450); RBC 4.58 m/uL (3.80-5.40); RDW 13.5 % (11.5-15.5); WBC 12.3 k/uL (3.8-10.6)
--- NOTE | 2023-12-08 16:50 | P.HPOB ---
History of Present Illness H&P Date: 12/08/23 Chief Complaint: labor 28 year old presents at 38 weeks 4 days in avtive labor. She is devorah every 3 minutes. heart tones 150 with moderate variability and reactive. Her cervix was 6-7/100/-1. Review of Systems All systems: negative Constitutional: Denies chills, Denies fever Eyes: denies blurred vision, denies pain Ears, nose, mouth and throat: Denies headache, Denies sore throat Cardiovascular: Denies chest pain, Denies shortness of breath Respiratory: Denies cough Gastrointestinal: Denies abdominal pain, Denies diarrhea, Denies nausea, Denies vomiting Genitourinary: Denies dysuria, Denies hematuria Musculoskeletal: Denies myalgias Integumentary: Denies pruritus, Denies rash Neurological: Denies numbness, Denies weakness Psychiatric: Denies anxiety, Denies depression Endocrine: Denies fatigue, Denies weight change Past Medical History Past Medical History: Renal Disease Additional Past Medical History / Comment(s): epilepsy, kidney stones, MRSA History of Any Multi-Drug Resistant Organisms: MRSA Date of last positivie culture/infection: 01/16/2015 MDRO Source:: legs Past Surgical History: Tonsillectomy Additional Past Surgical History / Comment(s): lithotripsy/uretal stent Past Anesthesia/Blood Transfusion Reactions: No Reported Reaction Past Psychological History: No Psychological Hx Reported Smoking Status: Never smoker Past Alcohol Use History: None Reported Past Drug Use History: None Reported - Past Family History Mother Family Medical History: Hypertension Medications and Allergies Home Medications Medication Instructions Recorded Confirmed Type Vit No.179/Iron/Folic 1 each PO DAILY 04/17/22 12/08/23 History [ Tablet] Allergies Allergy/AdvReac Type Severity Reaction Status Date / Time Penicillins Allergy Rash/Hives Verified 12/08/23 14:42 Sulfa (Sulfonamide Allergy Rash/Hives Verified 12/08/23 14:42 Antibiotics) Exam Osteopathic Statement: *. No significant issues noted on an osteopathic structural exam other than those noted in the History and Physical/Consult. Vital Signs Temp Pulse Resp BP Pulse Ox 12/08/23 15:04 98.1 F 112 H 20 134/87 97 Intake and Output 12/08/23 12/08/23 12/08/23 06:59 14:59 22:59 Other: Weight 84.822 kg 84.822 kg Heart: Regular rate and rhythm Lungs: Clear to auscultation bilaterally Abdomen: Soft, nontender Extremities: Negative Homans sign Results Result Diagrams: 12/08/23 14:58 Abnormal Lab Results - Last 24 Hours (Table) 12/08/23 Range/Units 14:58 WBC 12.3 H (3.8-10.6) k/uL Neutrophils # 10.4 H (1.3-7.7) k/uL Assessment and Plan (1) Normal labor Current Visit: Yes Status: Acute Code(s): O80 - ENCOUNTER FOR FULL-TERM UNCO MPLICATED DELIVERY; Z37.9 - OUTCOME OF DELIVERY, UNSPECIFIED SNOMED Code(s): 60524039 Plan: 1. admit to [facility] 2. expectant management 3. anticipate normal vaginal delivery
[2023-12-08] MEDS: LIDOCAINE 0.5% (PF) 5 MG/ML (50 ML SDV) SQ PRN (17:30)
[2023-12-08] MEDS: OXYTOCIN 30 UNITS/500 ML NS 30 UNIT in SALINE 1 500ML.BAG IV SCH (17:31)
[2023-12-08] MEDS ORDERED: OXYTOCIN 30 UNITS/500 ML NS 30 UNIT in SALINE 1 500ML.BAG IV SCH (17:49)
[2023-12-08] MEDS ORDERED: diphenhydrAMINE 25 MG CAP PO PRN (17:49)
[2023-12-08] MEDS ORDERED: diphenhydrAMINE 50 MG CAP PO PRN (17:49)
[2023-12-08] MEDS ORDERED: diphenhydrAMINE 50 MG/ML 1 ML VIAL IVP PRN ×2 (17:49)
[2023-12-08] MEDS ORDERED: LANOLIN CREAM 1 GM TUBE TOPICAL PRN (17:49)
[2023-12-08] MEDS ORDERED: ZOLPIDEM 5 MG TAB PO PRN (17:49)
[2023-12-08] MEDS ORDERED: SIMETHICONE 80 MG CHEWABLE PO PRN (17:49)
[2023-12-08] MEDS ORDERED: HYDROCORTISONE 2.5% RECTAL CREAM 30 GM TUBE RECTAL PRN (17:49)
[2023-12-08] MEDS: LACTATED RINGERS 1,000 ML IV SCH (17:50)
[2023-12-08] MEDS: BENZOCAINE/MENTHOL SPRAY 1 GM/SPRAY AEROSOL TOPICAL PRN (17:58)
[2023-12-08] MEDS: IBUPROFEN 600 MG TAB PO PRN (18:02)
[2023-12-08] MEDS: ACETAMINOPHEN TAB 325 MG TAB PO PRN (21:41)
[2023-12-08] MEDS: LABETALOL 100 MG TAB PO STA (21:42)
[2023-12-08] MEDS: SENNOSIDES-DOCUSATE SODIUM 1 EACH TAB PO SCH (21:42)
[2023-12-09 07:45] LABS: Basophils % (A) 0 %; Eosinophils # (A) 0.1 k/uL (0-0.7); Eosinophils % (A) 1 %; HCT 39.6 % (34.0-46.0); HGB 13.3 gm/dL (11.4-16.0); Lymphocytes # (A) 2.4 k/uL (1.0-4.8); Lymphocytes % (A) 15 %; MCH 32.4 pg (25.0-35.0); MCHC 33.6 g/dL (31.0-37.0); MCV 96.5 fL (80.0-100.0); Monocytes # (A) 0.7 k/uL (0-1.0); Monocytes % (A) 5 %; Neutrophils # (A) 11.9 k/uL (1.3-7.7); Neutrophils % (A) 78 %; Platelet Count 208 k/uL (150-450); WBC 15.3 k/uL (3.8-10.6)
--- NOTE | 2023-12-09 08:13 | P.PROBDLV ---
Vaginal Delivery Note - . Vaginal Delivery Note: 28 year old presents at 38 weeks 4 days in avtive labor. She is devorah every 3 minutes. heart tones 150 with moderate variability and reactive. Her cervix was 6-7/100/-1. She continued to contract every few minutes after being admitted to [facility]. She is nitrous oxide for pain control. The couple hours later she was still about 7 cm dilated and amniotomy was performed at 1637, clear fluid noted. She progressed to complete at 1705. She pushed, delivered a viable male infant over intact perineum at 1724. Head delivered OA, anterior shoulder delivered gentle downward guidance followed by posterior shoulder and rest of body. Nose and mouth bulb suctioned infant placed mother's abdomen, Apgars 9, 9, weight 7 lbs. 10 oz. I waited a few minutes for the cord to turn more of a white color as requested by patient and her . At this time cord was clamped and cut. Placenta delivered at 1731 intact with three-vessel cord. Perineum, vagina, cervix were inspected. First- degree midline laceration was repaired with 3-0 Vicryl. Estimated blood loss 200 mL. Mother and baby in stable condition.
--- NOTE | 2023-12-09 08:15 | P.DS ---
Providers Date of admission: 12/08/23 14:52 Expected date of discharge: 12/09/23 Attending physician: Vesna Vargas Primary care physician: Stated None - Discharge Diagnosis(es) (1) Normal labor Current Visit: Yes Status: Resolved (2) Status post normal vaginal delivery Current Visit: Yes Status: Acute Hospital Course: Patient presented in active labor. She underwent a normal vaginal delivery. course was uneventful. She denies nausea, vomiting, chest pain, shortness of breath or calf pain. She'll be discharged home day #1 in stable condition to follow-up with me in 6 weeks. Plan - Discharge Summary New Discharge Prescriptions: No Action Vit No.179/Iron/Folic [ Tablet] 1 each PO DAILY Discharge Medication List Vit No.179/Iron/Folic [ Tablet] 1 each PO DAILY 04/17/22 [History] Follow up Appointment(s)/Referral(s): Vesna Vargas DO [Doctor of Osteopathic Medicine] - 6 Weeks Discharge Disposition: HOME SELF-CARE
[2023-12-09 11:14] VITALS: RESP 15
[2023-12-09 16:27] VITALS: BP 121/82; PULSE 87; TEMP 98.5
== END 2023-12-09 18:10 | disposition home or self-care (01) | DRG 807 ==
LOC: FBPOP 14:36 → 4FBP 14:52
PROVIDERS: ADMIT Obstetrics & Gynecology; ATTEND Obstetrics & Gynecology
PROC: 10E0XZZ Delivery of Products of Conception, External Approach (ICD-10-PCS; principal; 2023-12-08)
PROC: 0HQ9XZZ Repair Perineum Skin, External Approach (ICD-10-PCS; principal; 2023-12-08)
PROC: 10907ZC Drainage of Amniotic Fluid, Therapeutic from Products of Conception, Via Natural or Artificial Opening (ICD-10-PCS; principal; 2023-12-08)
DX: O99.354 Diseases of the nervous system complicating childbirth (principal); G40.909 Epilepsy, unspecified, not intractable, without status epilepticus; O70.0 First degree perineal laceration during delivery; Z88.0 Allergy status to penicillin; Z88.2 Allergy status to sulfonamides; Z3A.38 38 weeks gestation of pregnancy; Z37.0 Single live birth
CPT/HCPCS: 85025; 86850; 86900; 86901

== ENCOUNTER 2025-01-09 17:08 | Emergency (ER) | payer BC ==
[2025-01-09 17:21] VITALS: TEMP 97.9
[2025-01-09] MEDS: KETOROLAC 15 MG/ML 1 ML VIAL IVP STA (18:05)
[2025-01-09] MEDS: ONDANSETRON 4 MG/2 ML VIAL IVP STA (18:06)
[2025-01-09] MEDS: HYDROmorphone 1 MG/ML 1 ML SYRINGE IVP STA (18:06)
[2025-01-09] MEDS: SODIUM CHLORIDE 0.9% 1,000 ML IV SCH (18:07)
[2025-01-09 18:22] LABS: Basophils # (A) 0.03 10*3/uL (0.00-0.10); Basophils % (A) 0.3 %; Eosinophils # (A) 0.08 10*3/uL (0.04-0.35); Eosinophils % (A) 0.8 %; HCT 41.8 % (37.2-46.3); Lymphocytes # (A) 1.06 10*3/uL (0.90-5.00); Lymphocytes % (A) 10.4 %; MCH 32.3 pg (27.0-32.0); MCHC 35.9 g/dL (32.0-37.0); MCV 89.9 fL (80.0-97.0); Mean Platelet Volume 9.3 fL (9.5-12.2); Monocytes # (A) 0.58 10*3/uL (0.20-1.00); Monocytes % (A) 5.7 %; Neutrophils # (A) 8.45 10*3/uL (1.80-7.70); Neutrophils % (A) 82.6 %; Platelet Count 243 10*3/uL (140-440); RBC 4.65 10*6/uL (4.10-5.20); RDW 11.8 % (11.5-14.5); WBC 10.22 10*3/uL (4.50-10.00)
[2025-01-09 18:35] LABS: ALT 18 U/L (4-34); AST 25 U/L (14-36); African American GFR (CKD) >90 (>60 ml/min/1.73 sqM); Albumin 4.9 g/dL (3.5-5.0); Alkaline Phosphatase 67 U/L (38-126); Anion Gap 14 mmol/L; Blood Urea Nitrogen 18 mg/dL (7-17); Calcium 9.9 mg/dL (8.4-10.2); Carbon Dioxide 19 mmol/L (22-30); Chloride 104 mmol/L (98-107); Glucose 91 mg/dL (74-99); Non-African American GFR(CKD) >90 (>60 ml/min/1.73 sqM); Potassium 3.8 mmol/L (3.5-5.1); Sodium 137 mmol/L (137-145); Total Bilirubin 0.9 mg/dL (0.2-1.3); Total Protein 7.3 g/dL (6.3-8.2)
[2025-01-09 18:38] LABS: Appearance,Urine Cloudy (Clear); Bilirubin,Urine Negative (Negative); Blood,Urine Large (Negative); Color,Urine Red; Glucose,Urine (UA) Negative (Negative); Ketones,Urine 2+ (Negative); Leukocyte Esterase,Urine Large (Negative); Nitrite,Urine Negative (Negative); PH, Urine 5.5 (5.0-8.0); Protein,Urine 1+ (Negative); RBC,Urine >182 /hpf (0-5); Specific Gravity,Urine 1.021 (1.001-1.035); Squamous Epithelial Cell,Urine 2 /hpf (0-4); Urobilinogen,Urine <2.0 mg/dL (<2.0); WBC,Urine >182 /hpf (0-5)
--- NOTE | 2025-01-09 19:41 | CT ---
EXAMINATION TYPE: CT abdomen pelvis wo con DATE OF EXAM: 01/09/2025 7:13 PM COMPARISON: 02/09/2016 CLINICAL INDICATION: Female, 29 years old with history of kidney stone, Right flank pain since yester day. History of kidney stones. TECHNIQUE: Axial images were obtained from above the diaphragm to the pubic rami in the axial plane a t 5 mm thick sections. Reconstructed images are reviewed on the computer in the coronal plane. CONTRAST: mL of . Study performed without Oral Contrast DLP: 424.2 mGycm, Automated exposure control for dose reduction was used. FINDINGS: Limited CT sections are obtained the lung bases. The lung bases are clear. CT ABDOMEN: Liver: Normal Spleen: Normal Pancreas: Normal Adrenal glands: The adrenal glands are normal. Gallbladder: Normal Kidneys: No masses are evident. There is a moderate right hydronephrosis and hydroureter. This extend s to obstructing 0.6 cm right mid ureteral stone. No cysts are present. There are scattered punctate nonobstructing renal stones present bilaterally. The largest on right measures 0.5 cm. Aorta: Vascular calcification is within the aorta. Inferior vena cava: Normal. CT PELVIS: . This study is without oral contrast limiting evaluation Appendix: Normal as visualized. Urinary bladder: Normal. Genitourinary structures: There is a 3.6 x 4.8 cm cyst posterior right ovary. Left adnexa appears nor mal. Uterus appears unremarkable. Osseous structures: No suspicious lytic or sclerotic lesions. IMPRESSION: 1. Obstructing 0.6 cm right mid ureteral stone with moderate right hydronephrosis and hydroureter. 2. Additional nonobstructing bilateral renal stones. 3. 4.8 cm right ovarian cyst. [facility], , 01/09/2025 7:39 PM
[2025-01-09] MEDS: diphenhydrAMINE 50 MG/ML 1 ML VIAL IVP STA (20:59)
[2025-01-09] MEDS: METOCLOPRAMIDE 5 MG/ML 2 ML VIAL IVP STA (20:59)
--- NOTE | 2025-01-09 21:26 | ED ---
Abdominal Pain HPI - General Chief Complaint: Abdominal Pain Stated Complaint: R flank pain/down leg Time Seen by Provider: 01/09/25 17:21 Source: patient Mode of arrival: ambulatory Limitations: no limitations - History of Present Illness Initial Comments: 29-year-old female presents emergency department complaining of right flank pain. States that she does have a history of kidney stones. Pain started last night. Does feel similar nature to her previous stones. She denies gross hematuria. No fevers. Denies concern for . Patient has had lithotripsy with stent placement in the past. No diarrhea, constipation, black or bloody stools. No other alleviating, precipitating or modifying factors - Related Data Home Medications Medication Instructions Recorded Confirmed Vit No.179/Iron/Folic 1 each PO DAILY 04/17/22 01/13/25 [ Tablet] Previous Rx's Medication Instructions Recorded HYDROcodone/APAP 5-325MG [[place] 1 tab PO Q4HR PRN 3 Days #18 tab 01/09/25 5-325] Ketorolac [Toradol] 10 mg PO Q8HR PRN #15 tab 01/09/25 Ondansetron Odt [Zofran Odt] 4 mg PO Q8HR PRN #30 tab 01/09/25 Tamsulosin [Flomax] 0.4 mg PO DAILY #7 cap 01/09/25 Allergies Allergy/AdvReac Type Severity Reaction Status Date / Time Penicillins Allergy Rash/Hives Verified 01/13/25 13:06 Sulfa (Sulfonamide Allergy Rash/Hives Verified 01/13/25 13:06 Antibiotics) Review of Systems ROS Statement: Those systems with pertinent positive or pertinent negative responses have been documented in the HPI. ROS Other: All systems not noted in ROS Statement are negative. Past Medical History Past Medical History: Renal Disease Additional Past Medical History / Comment(s): epilepsy, kidney stones, MRSA History of Any Multi-Drug Resistant Organisms: MRSA Date of last positivie culture/infection: 01/16/2015 MDRO Source:: legs Past Surgical History: Tonsillectomy Additional Past Surgical History / Comment(s): lithotripsy/uretal stent Past Anesthesia/Blood Transfusion Reactions: No Reported Reaction Past Psychological History: No Psychological Hx Reported Smoking Status: Never smoker Past Alcohol Use History: None Reported Past Drug Use History: None Reported - Past Family History Mother Family Medical History: Hypertension General Exam Limitations: no limitations General appearance: alert, in distress, other (In pain) Head exam: Present: atraumatic, normocephalic, normal inspection Eye exam: Present: normal appearance, PERRL, EOMI. Absent: scleral icterus, conjunctival injection, periorbital swelling ENT exam: Present: normal exam, mucous membranes moist Neck exam: Present: normal inspection. Absent: tenderness, meningismus, lymphadenopathy Respiratory exam: Present: normal lung sounds bilaterally. Absent: respiratory distress, wheezes, rales, rhonchi, stridor Cardiovascular Exam: Present: normal rhythm, tachycardia, normal heart sounds. Absent: systolic murmur, diastolic murmur, rubs, gallop, clicks GI/Abdominal exam: Present: soft, normal bowel sounds. Absent: distended, tenderness, guarding, rebound, rigid Extremities exam: Present: normal inspection, full ROM, normal capillary refill. Absent: tenderness, pedal edema, joint swelling, calf tenderness Back exam: Present: normal inspection Neurological exam: Present: alert, oriented X3, CN II-XII intact Psychiatric exam: Present: normal affect, normal mood Skin exam: Present: warm, dry, intact, normal color. Absent: rash Course Vital Signs 01/09/25 01/09/25 01/09/25 17:16 18:14 21:37 Temperature 97.9 F Pulse Rate 102 H 91 89 Respiratory 18 16 17 Rate Blood Pressure 143/90 124/83 128/82 O2 Sat by Pulse 99 97 99 Oximetry Medical Decision Making - Medical Decision Making Was pt. sent in by a medical professional or institution (, PA, LOGISTICS ANALYTICS MANAGER, urgent care, hospital, or assisted...) When possible be specific @ -No Did you speak to anyone other than the patient for history (EMS, parent, family, police, friend...)? What history was obtained from this source @ -Spoke with significant other for history Did you review nursing and triage notes (agree or disagree)? Why? @ -I reviewed and agree with nursing and triage notes Were old charts reviewed (outside hosp., previous admission, EMS record, old EKG, old radiological studies, urgent care reports/EKG's, assisted records)? Report findings @ -No old charts were reviewed Differential Diagnosis (chest pain, altered mental status, abdominal pain women, abdominal pain men, vaginal bleeding, weakness, fever, dyspnea, syncope, headache, dizziness, GI bleed, back pain, seizure, CVA, palpatations, mental health, musculoskeletal)? @ -Differential Abdominal Pain Women: Appendicitis, Cholecystitis, diverticulosis, ischemic bowel, pancreatitis, hepatitis, UTI, gastroenteritis, AAA, incarcerated hernia, bowel obstruction, constipation, inflammatory bowel, hepatitis, peptic ulcer disease, splenic infarction, perforated viscus, vulvitis, ovarian torsion, PID, kidney stone, placenta abruption, this is not meant to be an all-inclusive list EKG interpreted by me (3pts min.). @ -Not done X-rays interpreted by me (1pt min.). @ -None done CT interpreted by me (1pt min.). @ -yes, CT demonstrates obstructing 0.6 cm right mid ureteral stone with moderate right hydronephrosis and hydroureter only high Deflux U/S interpreted by me (1pt. min.). @ -None done What testing was considered but not performed or refused? (CT, X-rays, U/S, labs)? Why? @ -None What meds were considered but not given or refused? Why? @ -None Did you discuss the management of the patient with other professionals ( professionals i.e. , PA, LOGISTICS ANALYTICS MANAGER, lab, RT, psych nurse, transition social worker, hotel director, teacher, electrical engineering drafting officer, disability case manager)? Give summary @ -No Was smoking cessation discussed for >3mins.? @ -No Was critical care preformed (if so, how long)? @ -No Were there social determinants of health that impacted care today? How? (Homelessness, low income, unemployed, alcoholism, drug addiction, transportation, low edu. Level, literacy, decrease access to med. care, usp, rehab)? @ -No Was there de-escalation of care discussed even if they declined (Discuss DNR or withdrawal of care, Hospice)? DNR status @ -No What co-morbidities impacted this encounter? (DM, HTN, Smoking, COPD, CAD, Cancer, CVA, ARF, Chemo, Hep., AIDS, mental health diagnosis, sleep apnea, morbid obesity)? @ -Kidney stones Was patient admitted / discharged? Hospital course, mention meds given and route, prescriptions, significant lab abnormalities, going to OR and other pertinent info. @ -Upon arrival patient seen and evaluated in room 20. Thorough history except exam was performed. IV access was established. Patient was given Toradol and Dilaudid for pain control. Laboratory studies are conducted. Patient provides a urine sample. CT is performed which demonstrates a 6 mm mid ureteral stone on the right. Patient is reevaluated and has minimal pain at this time. I discussed diagnosis, confirmed treatment options. Patient would like to go home and try and pass the stone on her own. She will be discharged home with prescriptions for Flomax, Toradol and [place]. She is to follow-up with the urologist for further definitive management return for any new or worsening symptoms Undiagnosed new problem with uncertain prognosis? @ -No Drug Therapy requiring intensive monitoring for toxicity (Heparin, Nitro, Insulin, Cardizem)? @ -No Were any procedures done? @ -No Diagnosis/symptom? @ -Acute right flank pain, acute right mid ureteral stone with hydronephrosis Acute, or Chronic, or Acute on Chronic? @ -Acute Uncomplicated (without systemic symptoms) or Complicated (systemic symptoms)? @ -Complicated Side effects of treatment? @ -No Exacerbation, Progression, or Severe Exacerbation? @ -No Poses a threat to life or bodily function? How? (Chest pain, [place], MA, pneumonia, PE, COPD, DKA, ARF, appy, cholecystitis, CVA, Diverticulitis, Homicidal, Suicidal, threat to staff... and all critical care pts) @ -No - Lab Data Result diagrams: 01/09/25 18:12 01/09/25 18:12 Lab Results 01/09/25 01/09/25 01/09/25 Range/Units 18:12 18:12 18:24 WBC 10.22 H (4.50-10.00) 10*3/uL RBC 4.65 (4.10-5.20) 10*6/uL Hgb 15.0 (12.0-15.0) g/dL Hct 41.8 (37.2-46.3) % MCV 89.9 (80.0-97.0) fL MCH 32.3 H (27.0-32.0) pg MCHC 35.9 (32.0-37.0) g/dL Plt Count 243 (140-440) 10*3/uL MPV 9.3 L (9.5-12.2) fL Immature Gran % (Auto) 0.2 % Neutrophils % 82.6 % Lymphocytes % 10.4 % Monocytes % 5.7 % Eosinophils % 0.8 % Basophils % 0.3 % Immature Gran # 0.02 (0.00-0.04) 10*3/uL Neutrophils # 8.45 H (1.80-7.70) 10*3/uL Lymphocytes # 1.06 (0.90-5.00) 10*3/uL Monocytes # 0.58 (0.20-1.00) 10*3/uL Eosinophils # 0.08 (0.04-0.35) 10*3/uL Basophils # 0.03 (0.00-0.10) 10*3/uL Sodium 137 (137-145) mmol/L Potassium 3.8 (3.5-5.1) mmol/L Chloride 104 (98-107) mmol/L Carbon Dioxide 19 L (22-30) mmol/L Anion Gap 14 mmol/L BUN 18 H (7-17) mg/dL Creatinine 0.70 (0.52-1.04) mg/dL Est GFR (CKD-EPI)AfAm >90 (>60 ml/min/1.73 sqM) Est GFR (CKD-EPI)NonAf >90 (>60 ml/min/1.73 sqM) Glucose 91 (74-99) mg/dL Calcium 9.9 (8.4-10.2) mg/dL Total Bilirubin 0.9 (0.2-1.3) mg/dL AST 25 (14-36) U/L ALT 18 (4-34) U/L Alkaline Phosphatase 67 (38-126) U/L Total Protein 7.3 (6.3-8.2) g/dL Albumin 4.9 (3.5-5.0) g/dL Urine Color Red Urine Appearance Cloudy H (Clear) Urine pH 5.5 (5.0-8.0) Ur Specific [place] 1.021 (1.001-1.035) Urine Protein 1+ H (Negative) Urine Glucose (UA) Negative (Negative) Urine Ketones 2+ H (Negative) Urine Blood Large H (Negative) Urine Nitrite Negative (Negative) Urine Bilirubin Negative (Negative) Urine Urobilinogen <2.0 (<2.0) mg/dL Ur Leukocyte Esterase Large H (Negative) Urine RBC >182 H (0-5) /hpf Urine WBC >182 H (0-5) /hpf Ur Squamous Epith Cells 2 (0-4) /hpf Urine HCG, Qual (Not Detectd) 01/09/25 Range/Units 18:24 WBC (4.50-10.00) 10*3/uL RBC (4.10-5.20) 10*6/uL Hgb (12.0-15.0) g/dL Hct (37.2-46.3) % MCV (80.0-97.0) fL MCH (27.0-32.0) pg MCHC (32.0-37.0) g/dL Plt Count (140-440) 10*3/uL MPV (9.5-12.2) fL Immature Gran % (Auto) % Neutrophils % % Lymphocytes % % Monocytes % % Eosinophils % % Basophils % % Immature Gran # (0.00-0.04) 10*3/uL Neutrophils # (1.80-7.70) 10*3/uL Lymphocytes # (0.90-5.00) 10*3/uL Monocytes # (0.20-1.00) 10*3/uL Eosinophils # (0.04-0.35) 10*3/uL Basophils # (0.00-0.10) 10*3/uL Sodium (137-145) mmol/L Potassium (3.5-5.1) mmol/L Chloride (98-107) mmol/L Carbon Dioxide (22-30) mmol/L Anion Gap mmol/L BUN (7-17) mg/dL Creatinine (0.52-1.04) mg/dL Est GFR (CKD-EPI)AfAm (>60 ml/min/1.73 sqM) Est GFR (CKD-EPI)NonAf (>60 ml/min/1.73 sqM) Glucose (74-99) mg/dL Calcium (8.4-10.2) mg/dL Total Bilirubin (0.2-1.3) mg/dL AST (14-36) U/L ALT (4-34) U/L Alkaline Phosphatase (38-126) U/L Total Protein (6.3-8.2) g/dL Albumin (3.5-5.0) g/dL Urine Color Urine Appearance (Clear) Urine pH (5.0-8.0) Ur Specific [place] (1.001-1.035) Urine Protein (Negative) Urine Glucose (UA) (Negative) Urine Ketones (Negative) Urine Blood (Negative) Urine Nitrite (Negative) Urine Bilirubin (Negative) Urine Urobilinogen (<2.0) mg/dL Ur Leukocyte Esterase (Negative) Urine RBC (0-5) /hpf Urine WBC (0-5) /hpf Ur Squamous Epith Cells (0-4) /hpf Urine HCG, Qual Not Detected (Not Detectd) Disposition Clinical Impression: Ureteral stone with hydronephrosis Disposition: HOME SELF-CARE Condition: Stable Instructions (If sedation given, give patient instructions): Kidney Stones (ED) Additional Instructions: You are passing a kidney stone. Alternate taking the Toradol with the [place] every 4 hours for pain control. Use the zofran for nausea. Take the Flomax every day. Follow up with the urologist. Return should you have trouble urinating, develop a fever or have uncontrolled pain. Prescriptions: Tamsulosin [Flomax] 0.4 mg PO DAILY #7 cap HYDROcodone/APAP 5-325MG [[place] 5-325] 1 tab PO Q4HR PRN 3 Days #18 tab PRN Reason: Severe Breakthrough Pain Ketorolac [Toradol] 10 mg PO Q8HR PRN #15 tab PRN Reason: Pain Ondansetron Odt [Zofran Odt] 4 mg PO Q8HR PRN #30 tab PRN Reason: Nausea Is patient prescribed a controlled substance at d/c from ED?: Yes When asked, does pt state using other controlled substances?: No If prescribed controlled substance>3 days was MAPS reviewed?: Prescribed <3 Days If opioid is for acute pain is fill amount 7 days or less?: Yes If Rx opioid, was Start Talking consent form obtained?: Yes Referrals: Anni Quiroga MD [Primary Care Provider] - 1-2 days Osorio Schaffer MD [STAFF PHYSICIAN] - 1-2 days Time of Disposition: 21:22
[2025-01-09] MEDS: TAMSULOSIN 0.4 MG CAP.ER.24H PO STA (21:31)
[2025-01-09 21:38] VITALS: BP 128/82; PULSE 89; RESP 17
== END 2025-01-09 21:38 | disposition home or self-care (01) ==
LOC: EC 17:08
DX: N13.2 Hydronephrosis with renal and ureteral calculous obstruction (principal); Z88.0 Allergy status to penicillin; Z88.2 Allergy status to sulfonamides
CPT/HCPCS: 36415; 80053; 85025; 81001; 81025; 74176; 99284; 96374; 96375; 96361; J2405; J1171; J1885

== ENCOUNTER → 2025-03-18 | Outpatient (CLI) | payer SELFPAY ==
--- NOTE | 2025-03-18 08:57 | US ---
EXAMINATION TYPE: US kidneys/renal and bladder DATE OF EXAM: 03/18/2025 COMPARISON: CT 01/09/25 CLINICAL INDICATION: Female, 29 years old with history of N13.2 HYDRONEPHROSIS WITH RENAL AND URETERA L CALCU; Hx obstructive renal calculus. F/U after lithotripsy. TECHNIQUE: Grayscale imaging of the bilateral kidneys and urinary bladder: FINDINGS: EXAM MEASUREMENTS: Right Kidney: 9.3 x 3.8 x 5.9 cm Left Kidney: 9.8 x 5.8 x 4.9 cm Right Kidney: echogenic renal pyramids, mild pelviectasis which persists post void Left Kidney: echogenic renal pyramids, mild pelviectasis which persists post void Bladder: [place] distended with internal debris. No debris left in bladder after voiding. Bilateral Jets seen: Yes No nephrolithiasis is seen. No masses are identified. IMPRESSION: 1. Bladder is distended and there is internal debris which could be related to postinfectious etiolog y and sediment. Recommend correlation with urinalysis. 2. Mild bilateral hydronephrosis with no definite obstructing calcification. [facility], , 03/18/2025 8:54 AM
== END | disposition home or self-care (01) ==
LOC: RADUSWWP 08:16
PROVIDERS: ATTEND Urology
DX: N13.2 Hydronephrosis with renal and ureteral calculous obstruction (principal)
CPT/HCPCS: 76770